=== PATIENT | female | born 1940 | race Caucasian/White ===

== ENCOUNTER 2020-05-27 10:25 | Emergency (ER) | payer MEDICARE ==
[~2020-05-27] VITALS: Ht 157.5 cm; Wt 76.0 kg
[~2020-05-27 10:25] MED LIST: LISI10TA4 PO; OMEP20CA15 PO
[2020-05-27 11:30] LABS: BASOPHILS # (AUTO) 0.1 X10'3 (0-0.2); BASOPHILS % (AUTO) 0.5 % (0-1); EOSINOPHILS % (AUTO) 0.1 % (0-6); HEMATOCRIT 40.6 % (35.0-45.0); HEMOGLOBIN 13.3 g/dl (12.0-16.0); LYMPHOCYTES # (AUTO) 0.9 X10'3 (1.1-4.8); LYMPHOCYTES % (AUTO) 8.6 % (21-51); MEAN CORPUSCULAR HEMOGLOBIN 29.2 PG (27.0-31.0); MEAN CORPUSCULAR HGB CONC 32.7 g/dL (33.0-36.5); MEAN CORPUSCULAR VOLUME 89.4 FL (78-98); MEAN PLATELET VOLUME 7.8 FL (7.4-10.4); MONOCYTES # (AUTO) 0.7 X10'3 (0-0.9); MONOCYTES % (AUTO) 6.7 % (2-12); NEUTROPHILS # (AUTO) 9.1 X10'3 (1.8-7.7); NEUTROPHILS % (AUTO) 84.1 % (42-75); PLATELET COUNT 260 X10'3 (140-440); RED BLOOD COUNT 4.54 X10'6 (4.20-5.60); RED CELL DISTRIBUTION WIDTH 14.4 % (11.5-14.5); WHITE BLOOD COUNT 10.8 X10'3 (4.5-11.0)
[2020-05-27 12:05] LABS: ALANINE AMINOTRANSFERASE 29 U/L (12-78); ALBUMIN 4.1 G/DL (3.4-5.0); ALBUMIN/GLOBULIN RATIO 1.1 (1.1-1.5); ALKALINE PHOSPHATASE 126 IU/L (46-116); ANION GAP 9 (8-16); ASPARTATE AMINO TRANSFERASE 20 U/L (10-37); BILIRUBIN,TOTAL 0.8 MG/DL (0.1-1.0); BLOOD UREA NITROGEN 13 MG/DL (7-18); BUN/CREATININE RATIO 14.1 (6.6-38.0); CALCIUM 9.2 MG/DL (8.5-10.1); CHLORIDE 99 MMOL/L (99-107); CREATININE 0.92 MG/DL (0.40-0.90); GLUCOSE 137 MG/DL (70-104); POTASSIUM 3.8 MMOL/L (3.5-5.1); SODIUM 134 MMOL/L (135-145); TOTAL CARBON DIOXIDE 25.8 MMOL/L (24-32); eGFR 59 ML/MIN
[2020-05-27] MEDS ORDERED: iohexol 350MG/ML 100ml bottle IV ONE (12:24)
[2020-05-27] MEDS ORDERED: aspirin 325mg tablet PO ONE (12:50)
--- NOTE | 2020-05-27 12:52 | NUR ---
relieving RN for break, pt and pt's daughter requesting covid test, Dr Christensen is aware and will order a send out test, pt to [place]
[2020-05-27 13:22] VITALS: BP 152/74
--- NOTE | 2020-05-27 13:22 | NUR ---
BACK FROM CT
[2020-05-27] MEDS ORDERED: LOSA25TA96 PO (13:58)
[2020-05-27] MEDS ORDERED: LEVO25TA2 PO (13:59)
== END 2020-05-27 15:23 | disposition home or self-care (01) ==
LOC: ER 10:25
DX: R07.89 Other chest pain (principal); K44.9 Diaphragmatic hernia without obstruction or gangrene; R09.89 Other specified symptoms and signs involving the circulatory and respiratory systems; R06.02 Shortness of breath; R05 Cough; Z79.899 Other long term (current) drug therapy
CPT/HCPCS: 36415; 71045; 71275; 80053; 83880; 84484; 85025; 93005; 99285; Q9967

== ENCOUNTER 2024-03-26 19:26 | Emergency (ER) | payer MEDICARE ==
[~2024-03-26] VITALS: Ht 157.5 cm; Wt 72.7 kg
[~2024-03-26 19:26] MED LIST changes: +LEVO25TA2 PO; -LISI10TA4 PO; +LOSA-415 PO
[2024-03-26 21:38] LABS: BILIRUBIN,URINE NEGATIVE (Neg); GLUCOSE, URINE NEGATIVE (Neg); KETONES,URINE TRACE mg/dl (Neg); LEUKOCYTE ESTERASE ,URINE NEGATIVE (Neg); NITRITES, URINE POSITIVE (Neg); OCCULT BLOOD,URINE NEGATIVE (Neg); PROTEIN,URINE NEGATIVE (Neg); UROBILINOGEN,URINE 0.2 E.U/dL (0.2-1.0)
[2024-03-26 21:50] LABS: MEAN PLATELET VOLUME 7.1 FL (7.4-10.4); PLATELET COUNT 262 X10'3 (140-440)
[2024-03-26 21:52] LABS: BASOPHILS % (AUTO) 0.6 % (0-1); EOSINOPHILS # (AUTO) 0.1 X10'3 (0-0.9); HEMATOCRIT 33.6 % (35.0-45.0); HEMOGLOBIN 11.3 g/dl (12.0-16.0); LYMPHOCYTES # (AUTO) 1.9 X10'3 (1.1-4.8); LYMPHOCYTES % (AUTO) 22.2 % (21-51); MEAN CORPUSCULAR HEMOGLOBIN 29.6 PG (27.0-31.0); MEAN CORPUSCULAR HGB CONC 33.6 g/dL (33.0-36.5); MEAN CORPUSCULAR VOLUME 87.8 FL (78-98); MONOCYTES # (AUTO) 0.5 X10'3 (0-0.9); MONOCYTES % (AUTO) 6.4 % (2-12); NEUTROPHILS # (AUTO) 5.8 X10'3 (1.8-7.7); NEUTROPHILS % (AUTO) 69.8 % (42-75); RED BLOOD COUNT 3.82 X10'6 (4.20-5.60); WHITE BLOOD COUNT 8.4 X10'3 (4.5-11.0)
[2024-03-26 21:53] LABS: UA COLLECTION TYPE CLN CATCH MIDSTREAM
[2024-03-26 21:54] LABS: COLOR,URINE DARK YELLOW (Yellow)
[2024-03-26 21:55] LABS: ALBUMIN 3.4 G/DL (3.4-5.0); ANION GAP 9 (8-16); BLOOD UREA NITROGEN 11 MG/DL (7-18); BUN/CREATININE RATIO 16.7 (10.0-20.0); CALCIUM 8.8 MG/DL (8.5-10.1); CHLORIDE 88 MMOL/L (99-107); CREATININE 0.66 MG/DL (0.40-0.90); GLUCOSE 119 MG/DL (70-104); MAGNESIUM 1.5 MG/DL (1.5-2.4); POTASSIUM 3.7 MMOL/L (3.5-5.1); SODIUM 122 MMOL/L (135-145); TOTAL CARBON DIOXIDE 25.2 MMOL/L (24-32); eCRCL 51 ML/MIN; eGFR 86 ML/MIN
[2024-03-26 21:55] LABS: BACTERIA,URINE 4+ /HPF (Neg); CLARITY,URINE SLIGHTLY CLOUDY (Clear); MUCUS STRANDS FEW /LPF (Neg); RBC,URINE 0-2 /HPF (0-2); SQUAMOUS EPITHELIAL CELL,UR FEW /LPF (FEW); TRANSITIONAL EPI CELLS,URINE FEW /HPF
[2024-03-26 21:56] LABS: RENAL CELLS, URINE FEW /HPF
[2024-03-26] MEDS ORDERED: CEPH-585 PO (22:55)
[2024-03-26] MEDS: CefTRIAXone/D5W-Rocephin 1gm 50 ML IV ONE (23:19)
[2024-03-26] MEDS: normal saline 1000ml 1,000 ML IV ONE (23:19)
[2024-03-26] MEDS: sodium chloride 1gm tablet PO SCH (23:25)
[2024-03-26] MEDS: sodium chloride 1gm tablet PO ONE ×2 (23:28→23:35)
[2024-03-27 00:12] VITALS: BP 129/68; PULSE 58; RESP 16; TEMP 97.6; O2SAT 98
== END 2024-03-27 00:25 | disposition home or self-care (01) ==
LOC: ER 19:27
DX: E87.1 Hypo-osmolality and hyponatremia (principal); N39.0 Urinary tract infection, site not specified; M54.9 Dorsalgia, unspecified; Z88.0 Allergy status to penicillin; Z79.899 Other long term (current) drug therapy
CPT/HCPCS: 36415; 71045; 80048; 81001; 83605; 83735; 84145; 85025; 87040; 87077; 87088; 87186; 93005; 96365; 99285; J0696; J7030; 96361